=== PATIENT | male | born 1990 | race Caucasian/White ===

== ENCOUNTER 2021-11-17 14:39 | Emergency (ER) | payer BC, OTHER ==
[~2021-11-17] VITALS: Ht 183 cm; Wt 95.0 kg
[2021-11-17 14:45] VITALS: BP 133/69
[2021-11-17 15:02] LABS: HEMATOCRIT 40 % (40-54); HEMOGLOBIN 13.8 g/dL (13.3-17.7); MEAN CORPUSCULAR HEMOGLOBIN 32 pg (25-34); MEAN CORPUSCULAR VOLUME 93 fL (80-99); WHITE BLOOD COUNT 6.6 10^3/uL (4.3-11.0)
[2021-11-17 15:03] LABS: BASOPHILS % (AUTO) 0 % (0-10); EOSINOPHILS % (AUTO) 2 % (0-10); LYMPHOCYTES % (AUTO) 40 % (12-44); MEAN CORPUSCULAR HGB CONC 35 g/dL (32-36); MEAN PLATELET VOLUME 10.2 fL (9.0-12.2); MONOCYTES % (AUTO) 11 % (0-12); NEUTROPHILS % (AUTO) 48 % (42-75); PLATELET COUNT 217 10^3/uL (130-400)
--- NOTE | 2021-11-17 15:03 | Diagnostic Imaging Report ---
INDICATION: Irregular heart rhythm. EXAMINATION: Chest, 11/17/2021. FINDINGS: There is a nonspecific metallic device overlying the left upper chest. The heart and pulmonary vasculature are normal. The lungs and pleural spaces are clear. There are no infiltrates, effusions, or pneumothorax. IMPRESSION: 1. No acute cardiopulmonary process. Dictated by: Dictated on workstation # [id number]
[2021-11-17 15:04] LABS: EOSINOPHILS # (AUTO) 0.1 10^3/uL (0.0-0.3); LYMPHOCYTES # (AUTO) 2.6 X 10^3 (1.0-4.0); MONOCYTES # (AUTO) 0.7 X 10^3 (0.0-1.0); NEUTROPHILS # (AUTO) 3.2 X 10^3 (1.8-7.8)
[2021-11-17 15:16] LABS: ALANINE AMINOTRANSFERASE 43 U/L (0-55); ALKALINE PHOSPHATASE 60 U/L (40-136); BUN/CREATININE RATIO 17; CALCIUM 9.3 MG/DL (8.5-10.1); CARBON DIOXIDE 24 MMOL/L (21-32); CHLORIDE 102 MMOL/L (98-107); CREATININE SERUM 0.78 MG/DL (0.60-1.30); GFR ESTIMATED 122; GLUCOSE 109 MG/DL (70-105); POTASSIUM 3.2 MMOL/L (3.6-5.0); SODIUM 138 MMOL/L (135-145); TOTAL PROTEIN 7.7 GM/DL (6.4-8.2)
[2021-11-17 15:17] LABS: ALBUMIN 4.6 GM/DL (3.2-4.5); BILIRUBIN,TOTAL < 0.2 MG/DL (0.1-1.0)
--- NOTE | 2021-11-17 15:43 | ED Chest Pain ---
General Chief Complaint: Cardiac/General Problems Stated Complaint: TACHY Source: patient Exam Limitations: no limitations History of Present Illness Date Seen by Provider: Nov 17, 2021 Time Seen by Provider: 14:40 Initial Comments Patient is a 31-year-old male with history of tachyarrhythmia who presents with palpitations lasting approximately 15 minutes while hunting. Symptoms have since resolved. Patient reports dizziness uneasiness and chest tightness with standing. [place] and has an external paint dipper with telemetry. The patient's heart rhythm has already been transmitted.. He is not currently on medications. Denies drugs or alcohol. No other acute symptoms or complaints. Timing/Duration: 1-3 hours Severity/Quality: mild Location: other Activities at Onset: other Prior CP/Workup: other Modifying Factors: improves with other Allergies and Home Medications Allergies Coded Allergies: No Known Drug Allergies (Unverified , 11/17/21) Patient Home Medication List Home Medication List Reviewed: Yes Review of Systems Review of Systems Constitutional: see HPI EENTM: See HPI Respiratory: See HPI Cardiovascular: See HPI Gastrointestinal: See HPI Genitourinary: See HPI Musculoskeletal: see HPI Skin: see HPI Psychiatric/Neurological: See HPI Endocrine: See HPI Hematologic/Lymphatic: See HPI All Other Systems Reviewed Negative Unless Noted: No Past Usetlfm-Obzpmb-Xvzogy Hx Patient Social History Tobacco Use?: Yes Physical Exam Vital Signs Capillary Refill : Height, Weight, BMI Height: '" Weight: lbs. oz. kg; BMI Method: General Appearance: No Apparent Distress, WD/WN HEENT: PERRL/EOMI, TMs Normal Neck: Full Range of Motion, Non Tender Respiratory: Chest Non Tender, Lungs Clear Cardiovascular: Regular Rate, Rhythm, No Edema Gastrointestinal: Soft Neurologic/Psychiatric: Alert, Oriented x3 Focused Exam Sepsis Stage: Ruled Out Progress/Results/Core Measures Results/Orders Lab Results Laboratory Tests Test 11/17/21 14:43 Range/Units White Blood Count 6.6 4.3-11.0 10^3/uL Red Blood Count 4.25 L 4.30-5.52 10^6/uL Hemoglobin 13.8 13.3-17.7 g/dL Hematocrit 40 40-54 % Mean Corpuscular Volume 93 80-99 fL Mean Corpuscular Hemoglobin 32 25-34 pg Mean Corpuscular Hemoglobin Concent 35 32-36 g/dL Red Cell Distribution Width 11.6 10.0-14.5 % Platelet Count 217 130-400 10^3/uL Mean Platelet Volume 10.2 9.0-12.2 fL Neutrophils (%) (Auto) 48 42-75 % Lymphocytes (%) (Auto) 40 12-44 % Monocytes (%) (Auto) 11 0-12 % Eosinophils (%) (Auto) 2 0-10 % Basophils (%) (Auto) 0 0-10 % Neutrophils # (Auto) 3.2 1.8-7.8 X 10^3 Lymphocytes # (Auto) 2.6 1.0-4.0 X 10^3 Monocytes # (Auto) 0.7 0.0-1.0 X 10^3 Eosinophils # (Auto) 0.1 0.0-0.3 10^3/uL Basophils # (Auto) 0.0 0.0-0.1 10^3/uL D-Dimer 0.22 0.00-0.49 UG/ML Sodium Level 138 135-145 MMOL/L Potassium Level 3.2 L 3.6-5.0 MMOL/L Chloride Level 102 98-107 MMOL/L Carbon Dioxide Level 24 21-32 MMOL/L Anion Gap 12 5-14 MMOL/L Blood Urea Nitrogen 13 7-18 MG/DL Creatinine 0.78 0.60-1.30 MG/DL Estimat Glomerular Filtration Rate 122 BUN/Creatinine Ratio 17 Glucose Level 109 H 70-105 MG/DL Calcium Level 9.3 8.5-10.1 MG/DL Corrected Calcium 8.5-10.1 MG/DL Total Bilirubin < 0.2 0.1-1.0 MG/DL Aspartate Amino Transf (AST/SGOT) 28 5-34 U/L Alanine Aminotransferase (ALT/SGPT) 43 0-55 U/L Alkaline Phosphatase 60 40-136 U/L Total Protein 7.7 6.4-8.2 GM/DL Albumin 4.6 H 3.2-4.5 GM/DL My Orders Hans - BRINDA GARCIA DO Cbc With Automated Diff (11/17/21 14:47) Comprehensive Metabolic Panel (11/17/21 14:47) Fibrin Degradation Products (11/17/21 14:47) Ekg Tracing (11/17/21 14:47) Chest 1 View Ap/Pa Only (11/17/21 14:47) Diltiazem Cd 24 Hr Capsule (Cardizem Cd (11/17/21 16:00) Departure Communication (Admissions) EKG: Sinus tach, rate 120, no acute ST-T wave changes. Nonspecific ST-T wave abnormalities. Single episode of tachycardia with maximal heart rate of 190 verbal report from the patient's cardiology team. Patient remains in normal sinus rhythm with sta ble vital signs and normal electrolytes while in the emergency department. Recommendations for daily Cardizem and cardiology follow-up. Return precautions reviewed. Patient verbalizes understanding agreement discharge instructions prior to departure. Impression Primary Impression: PSVT (paroxysmal supraventricular tachycardia) Disposition: HOME, SELF-CARE Condition: Stable Departure-Patient Inst. Decision time for Depature: 16:01 Referrals: NO,LOCAL PHYSICIAN (PCP) Primary Care Physician Patient Instructions: Supraventricular Tachycardia (SVT) Add. Discharge Instructions: You were evaluated in the emergency department for a fast heart rate, which was confirmed to be SVT by your engine maintenance mechanic. Please fill newly prescribed medication upon leaving the emergency department, avoid caffeine use, stimulants, alcohol and follow-up with your engine maintenance mechanic for further recommendations. Return to the ED if new or worsening symptoms. All discharge instructions reviewed with patient and/or family. Voiced understanding. Scripts Diltiazem HCl (Diltiazem 24Hr ER) 120 Mg Cap.er.24h 120 MG PO DAILY, #30 CAP Prov: BRINDA GARCIA DO 11/17/21 BRINDA GARCIA DO Nov 17, 2021 15:43
[2021-11-17] MEDS ORDERED: dilTIAZem120 MG (CARDIZEM CD) CAP PO ONE (16:00)
[2021-11-17] MEDS ORDERED: DILT-27 PO (16:03)
== END 2021-11-17 16:29 | disposition home or self-care (01) ==
LOC: ER FS 14:40
DX: I47.1 Supraventricular tachycardia (principal); Z72.0 Tobacco use
CPT/HCPCS: 36415; 71045; 80053; 85025; 85379; 93005